=== PATIENT | female | born 1995 | race Caucasian/White ===

== ENCOUNTER 2017-08-30 12:42 | Emergency (ER) | payer BC, OTHER ==
[2017-08-30 13:03] VITALS: BP 128/82
--- NOTE | 2017-08-30 13:07 | UC ---
Eye Complaint HPI - HPI Summary HPI Summary: 22 y/o female presents to the urgent care c/o R eye redness and yellowish eye discharge since yesterday. She removed he contact lenses yesterday. However this morning she woke up w/ yellowish crusting around eye lashes. Pt denies eye pain, fever, URI, FARRAR, photophobia. dizziness, SOB, chest pain,SOB, abdominal pain, N/V/D - History of Current Complaint Chief Complaint: UCEye Stated Complaint: RT EYE COMPLAINT Time Seen by Provider: 08/30/17 13:05 Hx Obtained From: Patient Hx Last Menstrual Period: 08/25/17 ?: No Onset/Duration: Gradual Onset, Lasting Days - 1 day, Still Present, Worse Since - this morning Timing: Constant Severity Initially: Mild Severity Currently: Mild Pain Intensity: 0 Pain Scale Used: 0-10 Numeric Location of Injury: Conjunctiva - Rt redness Character: Foreign Body Sensation Aggravating Factor(s): Contact Lens Alleviating Factor(s): Nothing Associated Signs And Symptoms: Positive: Drainage (Purulent). Negative: Photophobia, Fever, Swelling - Risk Factors Penetrating Injury Risk Factor: Negative Acute Glaucoma Risk Factors: Negative Optic Artery Occlusion Risk Factors: Negative - Allergies/Home Medications Allergies/Adverse Reactions: Allergies Allergy/AdvReac Type Severity Reaction Status Date / Time MS Penicillins [Penicillins] Allergy Mild Trouble Verified 08/30/17 12:58 with balance Penicillins Allergy Unknown Verified 08/30/17 12:58 Reaction Details PMH/Surg Hx/FS Hx/Imm Hx Previously Healthy: Yes - Pt denies PMHX - Surgical History Surgical History: Yes Surgery Procedure, Year, and Place: T&A, hernia surgery - Family History Known Family History: Positive: Hypertension - Social History Occupation: Employed Full-time Lives: With Family Alcohol Use: None Substance Use Type: None Smoking Status (MU): Light Every Day Tobacco Smoker Type: Cigarettes Amount Used/How Often: 1/3 PPD Length of Time of Smoking/Using Tobacco: 3 Years Have You Smoked in the Last Year: Yes Household Exposure Type: Cigarettes Review of Systems Constitutional: Negative Skin: Negative Eyes: Eye Redness - RT eye w/ yellowish drainage ENT: Negative Respiratory: Negative Cardiovascular: Negative Gastrointestinal: Negative Genitourinary: Negative Motor: Negative Neurovascular: Negative Musculoskeletal: Negative Neurological: Negative Psychological: Negative Is Patient Immunocompromised?: No All Other Systems Reviewed And Are Negative: Yes Physical Exam - Summary Physical Exam Summary: Vital Signs Reviewed: Yes General: Well appearing, well nourished female in no apparent pain distress Eyes: Positive: RT Conjunctiva Inflamed - Visual acuity: WNL,Visual olguin: full to confrontation.No swelling observed or tendern to palaption. PERRLA, EOMI intact w/out limitation or complaint of pain. RT eyelashes w/ yellowish crusting discharge. mild tearing and yellowish drainage observed. No ciliary flush. No chemosis, No photophobia. Normal fundoscopic exam; no proptosis, exophthalmos, nystagmus. ENT: Positive: Normal ENT inspection, Hearing grossly normal, Pharynx normal, Nasal congestion, Nasal drainage - clear, TMs normal - B/L external ear canal clear , TM's WNL. Negative: Tonsillar swelling, Tonsillar exudate Neck: Positive: Supple, Nontender, No Lymphadenopathy Respiratory: Positive: Chest nontender, Lungs clear, Normal breath sounds, No respiratory distress Cardiovascular: Positive: RRR, No Murmur, Pulses Normal, Brisk Capillary Refill Abdomen Description: Positive: Nontender, No Organomegaly, Soft. Negative: CVA Tenderness (R), CVA Tenderness (L) Bowel Sounds: Positive: Present Musculoskeletal: Positive: Strength Intact, ROM Intact, Neurological Exam: Normal Psychological Exam: Normal Skin Exam: Normal Triage Information Reviewed: Yes Vital Signs: Initial Vital Signs Temp 97.8 F 08/30/17 12:58 Pulse 73 08/30/17 12:58 Resp 18 08/30/17 12:58 BP 128/82 08/30/17 12:58 Pulse Ox 100 08/30/17 12:58 Eye Complaint Course/Dx - Course Course Of Treatment: 22 y/o female presents to the urgent care c/o R eye redness and yellowish eye discharge since yesterday. She removed he contact lenses yesterday. However this morning she woke up w/ yellowish crusting around eye lashes. Pt denies eye pain, fever, URI, FARRAR, photophobia. dizziness, SOB, chest pain,SOB, abdominal pain, N/V/D. Hx obtained. pt w/ Rt acute bacterial conjuntivitis on examination. Pt Rx Ciprofloxacin ophthalmic drops and advised if symptoms do not improve or worsen to f/u with Opthalmologist Dr Hernández in 2-3 days. Pt understood and agreed w/ plan of care. - Differential Dx/Diagnosis Differential Diagnosis/HQI/PQRI: Conjunctivitis, Corneal Abrasion, Periorbital Cellulitis, Uveitis Provider Diagnoses: 1- Rt acute bacterial conjuntivitis Discharge - Discharge Plan Condition: Stable Disposition: HOME Prescriptions: Ciprofloxacin 0.3% OPTH.FILIBERTO* [Cipro 0.3% Opth*] 2 drop RIGHT EYE Q4H #1 btl Patient Education Materials: Conjunctivitis (ED) Referrals: VIRGINIA Palomino [Primary Care Provider] - 2 Days Gilma Engel MD [Medical Doctor] - 2 Days Additional Instructions: 1-Please apply ophthalmic drops as instructed and finish the full course of treatment to avoid recurrent infection. Avoid wearing your contact lenses until symptoms completely resolve. 2- Please encourage hand washing 3-If you do not improve or if symptoms worsen please f/u with research project manager for further evaluation and treatment
== END 2017-08-30 13:26 | disposition home or self-care (01) ==
LOC: UCCORT 12:42
DX: H10.89 Other conjunctivitis (principal); Z88.0 Allergy status to penicillin; F17.210 Nicotine dependence, cigarettes, uncomplicated
CPT/HCPCS: 99202; G0463